=== PATIENT | female | born 1980 | race Asian ===

== ENCOUNTER 2023-08-28 03:06 | Inpatient (IN) | payer BC ==
[~2023-08-28] VITALS: Ht 160 cm; Wt 65.3 kg
[2023-08-28] MEDS ORDERED: NACL 0.9% 1,000 ML IV ONE (03:45)
[2023-08-28] MEDS ORDERED: KETOROLAC TROMETHAMINE 30 MG VIAL IVP ONE (03:45)
[2023-08-28 03:46] VITALS: BP_SYST 132; PULSE 88; RESP 18; TEMP 98.3; O2SAT 97
[2023-08-28 04:15] LABS: BILIRUBIN,URINE 2+ (NEGATIVE); BLOOD, URINE NEGATIVE (NEGATIVE); CLARITY/URINE SL CLOUDY (CLEAR); COLOR,URINE YELLOW (YELLOW); GLUCOSE,URINE NEGATIVE (NEGATIVE); KETONES,URINE NEGATIVE (NEGATIVE); LEUKOCYTE ESTERASE ,URINE TRACE (NEGATIVE); NITRITE, URINE NEGATIVE (NEGATIVE); PROTEIN URINE 1+ (NEGATIVE)
[2023-08-28 04:28] LABS: BASOPHILS % (AUTO) 0.2 % (0.0-2.0); CREATININE 0.69 mg/dL (0.55-1.30); EOSINOPHILS % (AUTO) 0.4 % (0.0-4.0); HEMOGLOBIN 10.4 g/dL (12.0-16.0); LYMPHOCYTES # (AUTO) 0.9 K/uL (1.0-5.5); LYMPHOCYTES % (AUTO) 16.7 % (20.5-51.5); MEAN CORPUSCULAR HEMOGLOBIN 25 pg (27-31); MEAN CORPUSCULAR HGB CONC 32 % (32-36); MEAN CORPUSCULAR VOLUME 80 fL (79.0-98.0); MONOCYTES # (AUTO) 0.4 K/uL (0.0-1.0); MONOCYTES % (AUTO) 6.3 % (1.7-9.3); NEUTROPHILS # (AUTO) 4.2 K/uL (1.8-7.7); NEUTROPHILS % (AUTO) 76.4 % (40.0-70.0); PLATELET COUNT (AUTO) 296 K/uL (130-430); POTASSIUM 3.4 mmol/L (3.5-5.1); RED BLOOD CELL COUNT(AUTO) 4.13 MIL/uL (4.2-6.2); RED CELL DISTRIBUTION WIDTH 15.3 % (9.0-15.0); WHITE BLOOD COUNT (AUTO) 5.5 K/uL (4.8-10.8)
[2023-08-28 04:40] LABS: ALBUMIN 3.7 g/dL (3.4-4.8); BILIRUBIN,DIRECT 1.3 mg/dL (0.0-0.3); TOTAL PROTEIN, SERUM 7.9 g/dL (6.4-8.3)
[2023-08-28 05:35] LABS: BACTERIA,URINE MANY /HPF (None Seen); RBC,URINE 0-3 /HPF (0-3)
[2023-08-28] MEDS ORDERED: ONDANSETRON HCL 4 MG/2 ML VIAL IVP ONE (06:30)
[2023-08-28] MEDS ORDERED: MORPHINE 4 MG INJ. 4 MG/ML VIAL IVP ONE (06:30)
[2023-08-28] MEDS ORDERED: D5/0.45 NS 1,000 ML IV ONE (07:15)
[2023-08-28] MEDS ORDERED: MORPHINE 2 MG/ML INJ. SYRINGE IVP PRN ×3 (07:15→10:45)
[2023-08-28 08:20] VITALS: BP_SYST 108; PULSE 59; RESP 17; TEMP 97.7; O2SAT 99
[2023-08-28 08:30] VITALS: O2SAT 99
[2023-08-28] MEDS ORDERED: MUPIROCIN 2% TOPICAL OINTMENT 22 GM NS PRN (10:45)
[2023-08-28] MEDS ORDERED: MAGNESIUM SULFATE 50 ML IV PRN (10:45)
[2023-08-28] MEDS ORDERED: ZOLPIDEM TARTRATE 5 MG TABLET PO PRN (10:45)
[2023-08-28] MEDS ORDERED: ONDANSETRON HCL 4 MG/2 ML VIAL IVP PRN (10:45)
[2023-08-28] MEDS ORDERED: LORazepam 2 MG/ML VIAL IVP PRN (10:45)
[2023-08-28] MEDS ORDERED: NALOXONE HCL 0.4 MG/ML AMP (NARCAN) IVP PRN ×2 (10:45)
[2023-08-28] MEDS ORDERED: DOCUSATE SODIUM 100 MG CAPSULE PO PRN (10:45)
[2023-08-28 10:54] LABS: HCG,QUAL RESULT NEGATIVE (NEGATIVE)
[2023-08-28] MEDS ORDERED: ACETAMINOPHEN 500 MG TABLET PO PRN ×2 (11:00)
[2023-08-28] MEDS: D5NS 1,000 ML IV SCH ×2 (11:28→21:21)
[2023-08-28 12:00] VITALS: BP_SYST 116; PULSE 58; RESP 16; TEMP 97.3; O2SAT 99
[2023-08-28] MEDS ORDERED: cefTRIAXone 1 GM in D5W 50 ML IV SCH (12:00)
[2023-08-28] MEDS: PIPERACILLIN/TAZO 3.375/DEX-IS 50 ML IV SCH ×3 (12:26→23:19)
[2023-08-28 16:00] VITALS: BP_SYST 108; PULSE 75; RESP 16; TEMP 97.2; O2SAT 96
[2023-08-28] MEDS: POTASSIUM CHLORIDE 20 MEQ TABLET.ER PO PRN (18:27)
[2023-08-28 20:00] VITALS: BP_SYST 118; PULSE 72; RESP 16; TEMP 97.5; TEMP 98.9; O2SAT 97; O2SAT 99
[2023-08-29] VITALS (10 sets, daily range): BP systolic 117–150; PULSE 72–104; RESP 15–18; TEMP 97.9–101.6; O2SAT 94–99
[2023-08-29 05:20] LABS: EOSINOPHILS % (AUTO) 0.3 % (0.0-4.0); HEMOGLOBIN 9.6 g/dL (12.0-16.0); LYMPHOCYTES # (AUTO) 1.1 K/uL (1.0-5.5); LYMPHOCYTES % (AUTO) 10.2 % (20.5-51.5); MEAN CORPUSCULAR HEMOGLOBIN 26 pg (27-31); MEAN CORPUSCULAR HGB CONC 32 % (32-36); MEAN CORPUSCULAR VOLUME 81 fL (79.0-98.0); MONOCYTES # (AUTO) 0.7 K/uL (0.0-1.0); MONOCYTES % (AUTO) 6.7 % (1.7-9.3); NEUTROPHILS # (AUTO) 8.9 K/uL (1.8-7.7); NEUTROPHILS % (AUTO) 82.8 % (40.0-70.0); PLATELET COUNT (AUTO) 245 K/uL (130-430); RED CELL DISTRIBUTION WIDTH 15.7 % (9.0-15.0); WHITE BLOOD COUNT (AUTO) 10.8 K/uL (4.8-10.8)
[2023-08-29 06:05] LABS: BILIRUBIN,DIRECT 0.4 mg/dL (0.0-0.3); CALCIUM 8.1 mg/dL (8.4-11.0); CREATININE 0.66 mg/dL (0.55-1.30); POTASSIUM 3.3 mmol/L (3.5-5.1); TOTAL BILIRUBIN 0.8 mg/dL (0.0-1.0); TOTAL PROTEIN, SERUM 6.6 g/dL (6.4-8.3)
[2023-08-29] MEDS: PIPERACILLIN/TAZO 3.375/DEX-IS 50 ML IV SCH ×3 (06:29→17:06)
[2023-08-29] MEDS: D5NS 1,000 ML IV SCH (06:30)
[2023-08-29] MEDS: ACETAMINOPHEN 500 MG TABLET PO PRN (08:40)
[2023-08-29] MEDS: POTASSIUM CHLORIDE 20 MEQ TABLET.ER PO PRN (08:45)
[2023-08-29] MEDS ORDERED: GLYCOPYRROLATE 0.2 MG/ML VIAL ONE (13:30)
[2023-08-29] MEDS ORDERED: CEFAZOLIN 2 GM IVPB PREMIX 50 ML IV ONE (13:30)
[2023-08-29] MEDS ORDERED: LR 1,000 ML IV.SOLN IV ONE (13:30)
[2023-08-29] MEDS ORDERED: WATER FOR IRRIGATION,STERILE 1,000 ML IRRIG.SOLN IR ONE (13:30)
[2023-08-29] MEDS ORDERED: KETOROLAC TROMETHAMINE 30 MG VIAL ONE (13:30)
[2023-08-29] MEDS ORDERED: BUPIVACAINE /PF 0.25% 30 ML VIAL INJ ONE (13:30)
[2023-08-29] MEDS ORDERED: MIDAZOLAM HCL/PF 2 MG/2 ML SYRINGE ONE (13:30)
[2023-08-29] MEDS ORDERED: NS IRRIG SOLN 1000 ML IR ONE (13:30)
[2023-08-29] MEDS ORDERED: SUCCINYLCHOLINE CHLORIDE 20 MG/ML(QUELICIN) ONE (13:30)
[2023-08-29] MEDS ORDERED: NEOSTIGMINE METHYLSULFATE 1 MG/ML, 10 ML VIAL ONE (13:30)
[2023-08-29] MEDS ORDERED: ONDANSETRON HCL 4 MG/2 ML VIAL ONE (13:30)
[2023-08-29] MEDS ORDERED: SEVOFLURANE 15 MIN GAS INH ONE (13:30)
[2023-08-29] MEDS ORDERED: LIDOCAINE/EPI 1% 1:100000 20 ML VIAL ONE (13:30)
[2023-08-29] MEDS ORDERED: fentaNYL CITRATE/PF 100 MCG/2 ML AMP ONE (13:30)
[2023-08-29] MEDS ORDERED: ROCURONIUM BROMIDE 10 MG/ML (ZEMURON) ONE (13:30)
[2023-08-29] MEDS ORDERED: NS 1000 ML IV.SOLN IV ONE (13:30)
[2023-08-29] MEDS ORDERED: HYDROmorphone 1 MG/ML INJ. CARTRIDGE IVP PRN ×2 (14:00→15:00)
[2023-08-29] MEDS ORDERED: KETOROLAC TROMETHAMINE 30 MG VIAL IVP PRN (14:00)
[2023-08-29] MEDS ORDERED: METOCLOPRAMIDE HCL 10 MG/2 ML VIAL IVP PRN (14:00)
[2023-08-29] MEDS ORDERED: NALOXONE HCL 0.4 MG/ML AMP (NARCAN) IVP PRN (14:00)
[2023-08-29] MEDS ORDERED: ONDANSETRON HCL 4 MG/2 ML VIAL IVP PRN (14:00)
[2023-08-29] MEDS ORDERED: ACETAMINOPHEN I.V. 1000 MG 100 ML IV ONE (14:00)
[2023-08-29] MEDS ORDERED: HYDROcodone/ACETAMIN 5-325 MG TAB (NORCO/ VICODIN) PO PRN (15:00)
[2023-08-29] MEDS ORDERED: FLU VACC QS2023-24(6MOS UP)/PF 0.5 ML/SYR SYRINGE I.M. PRN (23:30)
[2023-08-30 01:00] VITALS: BP_SYST 108; PULSE 71; RESP 18; TEMP 96.8; O2SAT 98
[2023-08-30] MEDS: PIPERACILLIN/TAZO 3.375/DEX-IS 50 ML IV SCH ×4 (06:28→19:10)
[2023-08-30 08:00] VITALS: BP_SYST 103; PULSE 75; RESP 18; TEMP 97; O2SAT 98
[2023-08-30 08:00] LABS: BASOPHILS % (AUTO) 0.1 % (0.0-2.0); HEMATOCRIT 28.5 % (36-48); HEMOGLOBIN 9.2 g/dL (12.0-16.0); LYMPHOCYTES # (AUTO) 1.5 K/uL (1.0-5.5); LYMPHOCYTES % (AUTO) 11.4 % (20.5-51.5); MEAN CORPUSCULAR HEMOGLOBIN 26 pg (27-31); MEAN CORPUSCULAR HGB CONC 32 % (32-36); MEAN CORPUSCULAR VOLUME 80 fL (79.0-98.0); MONOCYTES % (AUTO) 7.7 % (1.7-9.3); NEUTROPHILS # (AUTO) 10.4 K/uL (1.8-7.7); NEUTROPHILS % (AUTO) 80.8 % (40.0-70.0); PLATELET COUNT (AUTO) 231 K/uL (130-430); RED BLOOD CELL COUNT(AUTO) 3.56 MIL/uL (4.2-6.2); RED CELL DISTRIBUTION WIDTH 15.8 % (9.0-15.0); WHITE BLOOD COUNT (AUTO) 12.9 K/uL (4.8-10.8)
[2023-08-30 08:05] LABS: CALCIUM 7.4 mg/dL (8.4-11.0); CREATININE 0.62 mg/dL (0.55-1.30); POTASSIUM 3.4 mmol/L (3.5-5.1)
[2023-08-30 08:59] LABS: ALBUMIN 2.8 g/dL (3.4-4.8); BILIRUBIN,DIRECT 0.2 mg/dL (0.0-0.3); TOTAL BILIRUBIN 0.4 mg/dL (0.0-1.0); TOTAL PROTEIN, SERUM 6.5 g/dL (6.4-8.3)
[2023-08-30 11:08] VITALS: BP_SYST 96; PULSE 71; RESP 16; TEMP 98.6; O2SAT 96
[2023-08-30] MEDS: ACETAMINOPHEN 500 MG TABLET PO PRN ×2 (12:59→19:11)
[2023-08-30] MEDS ORDERED: METR-154 PO (14:20)
[2023-08-30] MEDS ORDERED: HYDR-3917 PO (14:20)
[2023-08-30 15:05] VITALS: BP_SYST 103; PULSE 80; RESP 16; TEMP 98.2; O2SAT 93
[2023-08-30 20:23] VITALS: BP_SYST 114; PULSE 85; RESP 17; TEMP 98.8; O2SAT 100
== END 2023-08-30 21:08 | disposition home or self-care (01) | DRG 263 ==
LOC: SED 03:06 → SMU 07:07
PROVIDERS: ADMIT General Practice; ATTEND General Practice
PROC: BF522Z0 Other Imaging of Gallbladder using Fluorescing Agent, Intraoperative (ICD-10-PCS; 2023-08-29)
PROC: 0DNU3ZZ Release Omentum, Percutaneous Approach (ICD-10-PCS; 2023-08-29)
PROC: 0FT44ZZ Resection of Gallbladder, Percutaneous Endoscopic Approach (ICD-10-PCS; principal; 2023-08-29 13:30)
DX: K85.10 Biliary acute pancreatitis without necrosis or infection (principal); K80.00 Calculus of gallbladder with acute cholecystitis without obstruction; D63.8 Anemia in other chronic diseases classified elsewhere; E87.6 Hypokalemia; R74.01 Elevation of levels of liver transaminase levels
CPT/HCPCS: 36415; 71045; 74181; 76000; 76376; 76700-TC; 80048; 80076; 81000; 81001; 81015; 83037; 83690; 83735; 84478; 84703; 85025; 87086; 88304; 93005; 96374; 96375; 99285; C1727; C1758; J0131; J0330; J0690; J0696; J1885; J2060; J2270; J2405; J2543; J2710; J3010; J3465; J3475; J3490; J7030; J7060; J7120; Q9967